=== PATIENT | male | born 1965 | race Two or more races ===

== ENCOUNTER 2025-01-29 15:38 | Emergency (ER) | payer MEDICAID, OTHER ==
[~2025-01-29] VITALS: Ht 170.2 cm; Wt 58.6 kg
[2025-01-29 15:43] VITALS: BP 103/69; PULSE 90; RESP 16; TEMP 98.2; O2SAT 96
== END 2025-01-29 17:47 | disposition left against medical advice (07) ==
LOC: ER 15:38
DX: R73.9 Hyperglycemia, unspecified (principal); Z53.21 Procedure and treatment not carried out due to patient leaving prior to being seen by health care provider
CPT/HCPCS: 82947